=== PATIENT | female | born 1945 | race Two or more races ===

== ENCOUNTER 2017-06-10 13:01 | Observation (INO) | payer OTHER, MEDICARE ==
[~2017-06-10] VITALS: Ht 162.6 cm; Wt 48.0 kg
[~2017-06-10 13:01] MED LIST: NPR500T PO
[2017-06-10 13:10] VITALS: BP 135/87; PULSE 105; RESP 20; O2SAT 97
--- NOTE | 2017-06-10 13:22 | ED.REPORT ---
HPI-Extremity Problem Upper Date of Service Jun 10, 2017 ED Provider: Leo Santiago Patient is a 72 year old female with a hx of RA on prednisone who presents to the ED complaining of L elbow pain s/p a fall this morning. Pt dripped on uneven pavement and landed on her elbow. Associated symptoms include decreased ROM and swelling. She did not hit her head. She denies shoulder pain, wrist pain , headache, LOC, numbness, weakness, tingling, or any other symptoms. Her tetanus is up to date. Nursing Notes Stated Complaint: FALL/ARM INJURY Chief Complaint: Extremity Trauma Nursing Notes Reviewed: Yes Allergies: Coded Allergies: No Known Allergies (Unverified , 06/10/17) Scheduled PRN Naproxen (Naproxen) 500 Mg Tab 375 MG PO BID PRN PRN For Pain General Time Seen by MD: 13:21 Chief Complaint Elbow injury left Hx Obtained From: Patient Arrived By: Walk-in Onset Occurred: 5 - 8 hours ago Symptom Duration: Since onset Caused by: Fall on ground Location: : Elbow left Quality: Painful Severity: Current: Severe Severity: Maximum: Severe Pertinent Negative: Pt denies other symptoms Exacerbated by: Range of motion Pertinent Negative: Relieved by nothing Immunizations: Tetanus up to date Past Medical History Past Medical History rheumatoid arthritis Past Surgical History breast cancer at 40 years old Smoking History Former Smoker Social History Alcohol Use: Denies alcohol use Drug Use: Denies drug use Other Social History: Occupation lives by self, works at [employer] doing [employer] Ambulatory Status Independent Review of Systems Review of Systems Note: +decreased ROM -shoulder or wrist pain, tingling Musculoskeletal: Reports: Joint pain, Joint swelling Neurologic: Denies: Change LOC, Focal weakness, Headache, Numbness Complete sys rev & neg: except as marked. 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 (Moderate) Swelling and tenderness to the L elbow pain with ROM Wrist / Hand: Neurologic intact, Vascular intact multiple arthritis deformities Abdomen: Atraumatic, Soft, Non-tender Interpretation & Diagnostics X-Ray Interpretation Xray Interpretation: IMPRESSION: Intra-articular fracture of the olecranon, with associated elbow joint effusion. Dictated by: Harjit Armstrong M.D. on 06/10/2017 at 14:29 Approved by: Harjit Armstrong M.D. on 06/10/2017 at 14:31 X-Ray Ordered: Elbow left Interpretation / Wet Read by: Interpret - Radiologist Re-Eval/Medical Decision Re-Evaluation/Progress : Time of Eval: 14:32 Re-Evaluation/Progress Note: Discussed xray results and plan for admission. Patient understands and agrees with plan. All questions addressed at this time. Consultation #1: Referral / Consult Name: Demarcus Fernandez MD Consulted With: Orthopedic Call Returned at: 14:27 Health Promotion Coordinator: Will see patient, Agrees with eval, Agrees with plan Note: Discussed pt's case. Requests admit. NPO after midnight and order CT. Consultation #2: Referral / Consult Name: Nayeli Allen DO Consulted With: Hospitalist Call Returned at: 14:53 Health Promotion Coordinator: Will see patient, Agrees with eval, Agrees with plan, Accepts admit Note: Discussed pt's case with hospitalist's resident. Accepts admit. Counseled Regarding: Diagnosis, Lab results, Need for admission Discharge & Departure Impression: Primary Impression: Elbow fracture, left Encounter type: initial encounter Fracture type: closed Qualified Code: S42.402A - Unspecified fracture of lower end of left humerus, initial encounter for closed fracture Disposition: ADMITTED TO HOSPITAL Discharge Condition All VS Reviewed: Yes Condition: Stable Scribe Attestation Portions of this note were transcribed by Shen Rocha. I, Dr. Santiago personally performed the history, physical exam and medical decision-making; I reviewed and confirmed the accuracy of the information in the transcribed note. Signed by: Eric Moreno, 06/10/17 Leo Santiago MD Jun 10, 2017 13:22 SHEN ROCHA Jun 10, 2017 13:36
[2017-06-10] MEDS ORDERED: 0.9% Sodium Chloride 1,000 ML IV ONE (13:32)
[2017-06-10] MEDS ORDERED: Ketorolac 15 mg/mL Inj IVPUSH ONE (13:35)
[2017-06-10] MEDS ORDERED: HYDROmorphone 0.5 mg/0.5 mL iSecure Syringe IVPUSH PRN (13:35)
[2017-06-10] MEDS: Ondansetron 2 mg/mL 2 mL Inj IV PRN (13:56)
--- NOTE | 2017-06-10 14:32 | DRSVH ---
PROCEDURE: X-RAY LEFT ELBOW COMPLETE, MINIMUM THREE VIEWS ([id number]) INDICATIONS: 72 year-old female with left elbow trauma after fall onto concrete. TECHNIQUE: 3 views of the elbow were acquired. COMPARISON: None. FINDINGS: Bones: Intra-articular fracture of the olecranon is present, with 7 mm distraction of the fracture co mponents. Other bones appear intact. Soft tissues: There is elbow joint effusion, with anterior fat pad elevation. There is overlying mod erate soft tissue swelling as well. No suspicious soft tissue calcifications. IMPRESSION: Intra-articular fracture of the olecranon, with associated elbow joint effusion. Dictated by: Harjit Armstrong M.D. on 06/10/2017 at 14:29 Approved by: Harjit Armstrong M.D. on 06/10/2017 at 14:31
[2017-06-10] MEDS ORDERED: Alum-Mag Hydrox-Simeth 30 mL Suspension PO PRN (15:05)
[2017-06-10] MEDS ORDERED: Polyethylene Glycol (PEG) 17 Gm Powder PO PRN (15:05)
[2017-06-10] MEDS ORDERED: Ondansetron 2 mg/mL 2 mL Inj IVPUSH PRN (15:05)
[2017-06-10 15:31] LABS: BASOPHILS % (AUTO) 0.4 % (0-3); EOSINOPHILS % (AUTO) 0.4 % (0-5); MONOCYTES % (AUTO) 3.7 % (4-12); Mean Corpuscular Hemoglobin 31.4 pg (27.0-35.0); Mean Corpuscular Volume 94.5 fL (81-100); NEUTROPHILS % (AUTO) 80.9 % (40-74); Platelet Count 231 bil/L (150-400)
[2017-06-10 15:53] LABS: Magnesium 1.7 mg/dL (1.6-2.6)
[2017-06-10] MEDS ORDERED: HYDROmorphone 0.5 mg/0.5 mL iSecure Syringe IVPUSH ONE (16:00)
[2017-06-10] MEDS ORDERED: PRD5T PO (16:15)
[2017-06-10] MEDS ORDERED: LEFL20TA18 PO (16:20)
[2017-06-10] MEDS ORDERED: HYDROmorphone 0.5 mg/0.5 mL iSecure Syringe IVPUSH SCH (16:30)
[2017-06-10 16:36] VITALS: BP 149/87; PULSE 83; RESP 19; O2SAT 99
--- NOTE | 2017-06-10 16:39 | PCM.HPMED ---
Subjective Date of Service Jun 10, 2017 Primary Provider: Admitting Physician: Primary Care Physician: Lorenzo Attending Physician: Admit Status: From the Emergency Department, Full Admit, Admit to Red Team Chief Complaint: Left elbow pain after ground-level fall. . History of Present Illness: Atiya Lee is a 72-year-old female with a past medical history significant for rheumatoid arthritis and right breast cancer in remission status post lumpectomy, lymphadenectomy, and radiation therapy who presented to [facility] emergency Department after mechanical ground-level fall complaining of left elbow pain. The patient reports that she was on her way to [facility] when she fell and tripped over a lip in the sidewalk and landed on her left elbow. She reports significant pain after her fall. She rates her pain a +8 out of 10 in severity. She denies headache, cough, chest pain, shortness of breath, abdominal pain, nausea, vomiting, fever, chills, dysuria, constipation or diarrhea. She has no other complaints. Vital signs in the ER: Temperature 36.5. Pulse 105. Respiratory rate 20. Blood pressure 135/87. Pulse ox 97% room air. She received hydromorphone IV 0.5 mg 1, 1 L of NS, ondansetron IV 4 mg 1, Toradol IV 15 mg 1, and acetaminophen 975 mg 1. No PCP. Review of Systems: A comprehensive review of systems was conducted with the patient and found to be negative except as above in the History of Present Illness. . Allergies Coded Allergies: No Known Allergies (Unverified , 06/10/17) Home Medications Leflunomide 20 mg daily. Prednisone 5 mg daily. . PMH 1. Rheumatoid arthritis on prednisone. 2. Right breast cancer status post lumpectomy, lymphadenectomy, and radiation. . Surgical History Right breast cancer in remission status post lumpectomy, lymphadenectomy, and radiation. . Family History Mother with breast cancer at the age of 64. Father who was murdered. . Social History Hx Alcohol Use: Yes (12 glasses of wine 1-2x/week) Hx Substance Use: No Hx Tobacco Use: Yes Smoking Status: Former Smoker (1 PPD 20+ years) Additional Information The patient is 1. She has 3 children, 2 sons and 1 daughter who are all healthy. She works at the [employer] 27 years. . Exam Vital Signs Vital Sign - Last Date Time Temp Pulse Resp B/P Pulse Ox O2 Delivery O2 Flow Rate FiO2 06/10/17 13:10 36.5 105 20 135/87 97 Room Air Exam General: Female lying in bed and in no acute distress, well-developed, well- nourished, appropriately interactive. HEENT: Normocephalic, atraumatic. External ears without defect. Pupils equal, round, and reactive to light. Anicteric sclerae, moist conjunctivae, and no lid lag. Oropharynx free of erythema and cobble stoning with moist mucosa. Neck: Supple with full range of motion. No lymphadenopathy or thyromegaly. Cardiovascular: Regular rate and rhythm without murmurs, rubs, or gallops appreciated Pulmonary: Clear to auscultation bilaterally without crackles, wheezes, or rhonchi. Normal respiratory effort with no use of accessory muscles. Abdomen: Soft, nontender, nondistended, bowel sounds present. No hepatosplenomegaly or masses appreciated. Extremities: No clubbing, cyanosis, or edema of bilateral lower extremities. Significant edema and mild erythema of left elbow. Left elbow held in flexion and adduction. Skin: Normal temperature, turgor, and texture; no rash, ulcers, or subcutaneous nodules appreciated. Neurological: Cranial nerves grossly intact. Normal muscle strength, tone, and bulk. Reflexes, coordination, and sensory function within normal limits. No known gait impairment. Psychiatric: Normal mood and affect. Alert and oriented to person, place, and time. . Lab and Diagnostics Labs Item Value Date Time Sodium Level 142 mEq/L 06/10/17 1520 Potassium Level 4.1 mEq/L 06/10/17 1520 Chloride Level 106 mEq/L 06/10/17 1520 Carbon Dioxide Level 22 mmol/L 06/10/17 1520 Blood Urea Nitrogen 12 mg/dL 06/10/17 1520 Creatinine 0.58 mg/dL 06/10/17 1520 Estimat Glomerular Filtration Rate 146 mL/min 06/10/17 1520 Glucose Level 104 mg/dL H 06/10/17 1520 Calcium Level 8.6 mg/dL 06/10/17 1520 Magnesium Level 1.7 mg/dL 06/10/17 1520 Total Bilirubin 0.4 mg/dL 06/10/17 1520 Aspartate Amino Transf (AST/SGOT) 19 U/L 06/10/17 1520 Alanine Aminotransferase (ALT/SGPT) 11 U/L 06/10/17 1520 Alkaline Phosphatase 53 U/L 06/10/17 1520 Total Protein 6.2 g/dL L 06/10/17 1520 Albumin 3.6 g/dL 06/10/17 1520 Item Value Date Time White Blood Count 5.6 th/mm3 06/10/17 1520 Red Blood Count 4.01 mil/mm3 06/10/17 1520 Hemoglobin 12.6 g/dL 06/10/17 1520 Hematocrit 37.9 % 06/10/17 1520 Mean Corpuscular Volume 94.5 fL 06/10/17 1520 Mean Corpuscular Hemoglobin 31.4 pg 06/10/17 1520 Mean Corpuscular Hemoglobin Concent 33.2 % 06/10/17 1520 Red Cell Distribution Width 12.7 % 06/10/17 1520 Platelet Count 231 ritesh/L 06/10/17 1520 Neutrophils (%) (Auto) 80.9 % H 06/10/17 1520 Lymphocytes (%) (Auto) 14.2 % 06/10/17 1520 Monocytes (%) (Auto) 3.7 % L 06/10/17 1520 Eosinophils (%) (Auto) 0.4 % 06/10/17 1520 Basophils (%) (Auto) 0.4 % 06/10/17 1520 X-Rays, CTs and MRIs X-RAY LEFT ELBOW COMPLETE, MINIMUM THREE VIEWS IMPRESSION: Intra-articular fracture of the olecranon, with associated elbow joint effusion. Dictated by: Harjit Armstrong M.D. on 06/10/2017 at 14:29 . Assessment & Plan Atiya Lee is a 72-year-old female with a past medical history significant for rheumatoid arthritis and right breast cancer in remission status post lumpectomy, lymphadenectomy, and radiation therapy who presented to [facility] emergency Department after mechanical ground-level fall complaining of left elbow pain. 1. Acute intra-articular fracture of the olecranon, present on admission. Active. - The patient presents with left elbow pain after mechanical ground-level fall. - Left elbow x-ray demonstrated intra-articular fracture of the olecranon with associated elbow joint effusion, as above. - Ordered preoperative EKG, pending. - Ordered physical therapy and occupational therapy evaluation. - Ordered Tylenol 975 every 6 hours and hydrocodone 5-325 mg every 4 hours as needed for pain. Ordered hydromorphone 0.5 mg every 2 hours as needed severe pain. - Dr. Demarcus Fernandez of orthopedic surgery has been consulted and will plan to see the patient today. Tentative plan is for surgery tomorrow, therefore, patient will be NPO after midnight. -patient was on prednisone 5mg daily only ,no need for perioperative stress dose Chronic problems: 2. Rheumatoid arthritis, present on admission. Stable. - Continue prednisone 5 mg daily and leflunomide 20 mg daily. -patient was on prednisone 5mg daily only ,no need for perioperative stress dose -patient states she had DEXA scan and no need for osteoporosis treatment per patient The patient is DNR/DNI but was placed Full Code for future surgery. PRN antiemetics: Zofran and Maalox. PRN bowel regimen: Senna and MiraLAX. PRN analgesics: Tylenol. Patient is admitted under inpatient status with expected length of stay greater than 2 midnights due to severity of presenting symptoms, risk of adverse event, and complexity of treatment plan. . Resuscitation Status: CPR: Attempt Resuscitation Nayeli Allen DO Jun 10, 2017 14:54 Matt Pritchard MD Jun 10, 2017 16:58
[2017-06-10] MEDS: HYDROcodone-APAP 5-325 mg Tablet PO PRN ×2 (17:42→21:58)
[2017-06-10 19:28] LABS: APPEARANCE,URINE CLEAR (CLEAR,HAZY); COLOR,URINE YELLOW (YELLOW); OCCULT BLOOD,URINE NEGATIVE (NEGATIVE)
[2017-06-10 19:29] LABS: UROBILINOGEN,URINE NORMAL (NORMAL)
[2017-06-10] MEDS: HYDROmorphone 0.5 mg/0.5 mL iSecure Syringe IVPUSH PRN (19:42)
[2017-06-10 20:31] VITALS: PULSE 81
[2017-06-10 20:50] VITALS: BP 115/71; PULSE 80; RESP 21; O2SAT 95
--- NOTE | 2017-06-10 21:05 | DRSVH ---
PROCEDURE: X-RAY CHEST ONE VIEW ([id number]) INDICATIONS: pre-op TECHNIQUE: One view of the chest was acquired. COMPARISON: None. FINDINGS: Surgical changes and devices: Bibasilar scarring or fibrosis otherwise the lungs are clear. Lungs and pleura: No pleural effusions or pneumothorax. Mediastinum: Mediastinal contours appear normal. Heart size is normal. Bones and chest wall: No suspicious bony lesions. Overlying soft tissues appear unremarkable. Righ t axillary postoperative change. IMPRESSION: No radiographic evidence of acute cardiopulmonary pathology. Dictated by: Jaswant Morrison M.D. on 06/10/2017 at 21:02 Approved by: Jaswant Morrison M.D. on 06/10/2017 at 21:03
--- NOTE | 2017-06-10 21:12 | CONS ---
[address] [address] CONSULTATION REPORT PATIENT: KORTNEY GONZALEZ : 1945 MR#: [id number] ADMIT: 06/10/2017 JOB ID: [id number] DATE OF SERVICE: ORTHOPEDIC IN HOUSE CONSULTATION CPT CODE 67767-33 06/10/2017 CHIEF COMPLAINT: A 72-year-old female with steroid-dependent rheumatoid arthritis. On her way to [facility], she tripped and fell over a lip in the sidewalk and landed on her left elbow. The patient was brought to the emergency department and admitted. There was no loss of consciousness. The patient is having moderate pain in that left elbow and it is better with immobilization or at least with the arm sling. PAST MEDICAL HISTORY: The patient is on prednisone 5 mg per day and leflunomide 20 mg a day. She has a prior medical history positive for the rheumatoid arthritis, on prednisone. She had right breast cancer, status post lumpectomy, lymphadenectomy, and radiation. The patient has chronic contracture of the right elbow. FAMILY HISTORY: Positive for breast cancer with her mother. SOCIAL HISTORY: The patient drinks 1-2 glasses of wine per week. She is a former smoker. Smoked one pack per day for 20 years. She is x2 and has three children. 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 REVIEW OF SYSTEMS: HEENT: No blurring of vision. No decreased hearing. Respiratory: No acute shortness of breath. Cardiovascular: No chest pain. GI: No nausea or vomiting. Musculoskeletal: Pain in the left elbow. The patient denies any numbness or tingling in the upper extremities with cervical motion. She does have some chronic muscle wasting in her hands from her chronic rheumatoid changes in the hands. PHYSICAL EXAMINATION: 162 pounds, 48 kg female. Temperature 36.5, pulse 105, respiration 20, blood pressure 135/87. The patient is resting comfortably. She has good cervical range of motion. Denies any numbness or tingling with neck range of motion. She has chronic contracture in the right elbow and is not able to fully extend the elbow. The left elbow, there are no abrasions. She has positive joint effusion, 2+ swelling. She has chronic deformity in the hands, particularly over the thumbs, with subluxation of the metacarpophalangeal joint. The patient also has chronic muscle wasting in the hands. LABORATORY TESTING: White count 5600, hemoglobin 12.6, hematocrit 37.9, platelet count 231,000. Sodium 142, potassium 4.1, chloride 106, CO2 22, BUN 12, creatinine 0.58. Glucose 104, random. Total protein low at 6.2. Liver function tests within normal limits. Urinalysis, 0-5 white cells and no bacteria seen. X-rays of the elbow show that she has a displaced olecranon fracture. Will order a chest x-ray to be complete. IMPRESSION: Displaced right olecranon fracture. PLAN: I will also order a CT scan of the elbow with 3D reconstruction to further delineate the fracture planes. The patient will also require stress dose steroids and she is currently on daily steroids. I have ordered an Anesthesia consult for further evaluation. The patient is not displaying any neurologic symptoms with cervical range of motion. I therefore opted not to order cervical films unless Anesthesia feels that they are indicated. I will plan for her to have preoperative Ancef as well as Anesthesia can order stress dose steroids for surgery and would probably give her 1-2 additional doses of stress dose steroids postoperatively depending on anesthesia recommendations The patient's surgery will be performed in the Trauma block tomorrow afternoon, and I suspect she will probably need to at least remain overnight for some IV antibiotics and for stress dose steroids and then see about discharge to home the following day. Depending on her living situation, patient may also need some help at home and that could be determined. CC: [facility] CC: Charles Hays
--- NOTE | 2017-06-10 21:20 | DRSVH ---
PROCEDURE: CT ELBOW LEFT W/O CONTRAST ([id number]) INDICATIONS: pre-op eval. Please do 3D reconstruction TECHNIQUE: Noncontrast 1-1.5 mm axial sections were acquired through the elbow joint, with coronal and sagittal reformats. COMPARISON: None. FINDINGS: Image quality: Excellent. Bones: Transverse intra-articular fracture through the olecranon with 1.9 CM proximal distraction of the proximal fragment. No further fractures. Soft tissues: Left elbow hemarthrosis. IMPRESSION: Intra-articular transverse olecranon fracture with associated left elbow hemarthrosis. Dictated by: Jaswant Morrison M.D. on 06/10/2017 at 21:14 Approved by: Jaswant Morrison M.D. on 06/10/2017 at 21:19
[2017-06-10] MEDS ORDERED: Lactated Ringer's 1,000 ML IV SCH (23:59)
[2017-06-11] VITALS (13 sets, daily range): BP systolic 126–157; BP diastolic 67–89; PULSE 66–93; RESP 11–22; O2SAT 96–99
[2017-06-11] MEDS: HYDROmorphone 0.5 mg/0.5 mL iSecure Syringe IVPUSH PRN ×2 (02:30→05:33)
[2017-06-11] MEDS ORDERED: CeFAZolin Inj 2 GM in IV Premix 1 EACH IV ONE (06:00)
[2017-06-11 07:35] LABS: BASOPHILS % (AUTO) 0.4 % (0-3); EOSINOPHILS % (AUTO) 2.7 % (0-5); MONOCYTES % (AUTO) 7.2 % (4-12); Mean Corpuscular Hemoglobin 31.4 pg (27.0-35.0); Mean Corpuscular Volume 95.6 fL (81-100); NEUTROPHILS % (AUTO) 66.1 % (40-74); Platelet Count 206 bil/L (150-400)
[2017-06-11] MEDS: predniSONE 5 mg Tablet PO SCH (08:17)
[2017-06-11] MEDS: LEFLUNOMIDE 20 MG TAB PO SCH (08:18)
[2017-06-11] MEDS: Ondansetron 2 mg/mL 2 mL Inj IV PRN (12:13)
[2017-06-11] MEDS: HYDROmorphone 1 mg/mL Inj IVPUSH PRN ×2 (12:15→14:15)
[2017-06-11] MEDS ORDERED: Lactated Ringer's 1,000 ML IV ONE (15:06)
[2017-06-11] MEDS ORDERED: Phenylephrine/NS 100 mCg/mL 10 mL Syringe IVPUSH ONE (15:45)
[2017-06-11] MEDS ORDERED: EPHEDrine/NS 5 mg/mL 5 mL Syringe ONE (15:45)
[2017-06-11] MEDS ORDERED: fentaNYL-PF 50 mCg/mL 2 mL Inj ONE (15:45)
[2017-06-11] MEDS ORDERED: Propofol 10,000 mCg/mL 20 mL Inj ONE (15:45)
[2017-06-11] MEDS ORDERED: Ondansetron 2 mg/mL 2 mL Inj ONE (15:45)
[2017-06-11] MEDS ORDERED: HYDROmorphone 1 mg/mL Inj ONE (15:45)
[2017-06-11] MEDS ORDERED: Lactated Ringer's 500 ML IV PRN (16:02)
[2017-06-11] MEDS ORDERED: Lactated Ringer's 1,000 ML IV SCH (16:02)
--- NOTE | 2017-06-11 16:02 | PCM.HPANE ---
Patient Data Surgeon Admitting Provider:Matt Pritchard MD Attending Provider:Matt Pritchard MD Primary Care Physician:Lorenzo Other Provider:Fam Amaya Anesthesia Reason for Visit Left Elbow Fx LEFT ELBOW FX Ht/WT & BMI Height (Feet): 5 Height (Inches): 4.00 Weight (Kilograms): 48.000 Body Mass Index 18.07 Allergies Coded Allergies: No Known Allergies (Unverified , 06/10/17) Past Anesthesia History Anesthesia History: Denies:: Abnormal Airway, Anesthesia Reactions, Difficult Intubation, Fam Anesthesia Reaction, Fam Malignant Hypertherm, Malignant Hyperthermia Diabetes History Hx Diabetes?: No MRSA MRSA: No Medications Reported Medications Leflunomide 20 Mg [id number] Mg PO DAILY #30 06/10/17 Prednisone (PredniSONE)5 Mg Tab5 Mg PO DAILY #90 06/10/17 Discontinued Scripts Naproxen 500 Mg [id number] Mg PO BID PRN For Pain #20 TABLET Prov:Abhinav Stephens DO 12/25/15 History History of ENT Problems?: Yes HEENT History: Positive for:: Glaucoma Denies:: Cataracts Dysphagia Sinus Problem Denture Type: Full- Upper Full- Lower Teeth Condition: Missing Teeth Hx of Heart Problems?: No Cardiovascular History: Denies:: AICD Abdominal Aortic Aneurism Atrial Fibrillation Cardiac Surgery Chest Pain Congestive Heart Failure Coronary Artery Disease Edema Heart Murmur Hypertension Irregular Heartbeat Pacemaker Peripheral Vascular Rheumatic Fever Thrombophlebitis Valvular Heart Disease Hx of Respiratory Problem?: No Respiratory History: Denies:: Asthma COPD Chest Surgery Cough Dyspnea Emphysema Hemoptysis Oxygen Administration Pneumonia Pulmonary Embolism Tuberculosis Use of C-PAP Machine Use of Inhalers / NEBS Hx Neurologic Problems?: No Hx of GI Problems?: No Hx of Problems?: No Genitourinary History: Denies:: HX of Hemodialysis Kidney Stones Urinary Tract Infection HX of Peritoneal Dialysis: No Female Hx: Denies:: Currently Endometriosis Pelvic Inflammatory Problems with Breasts? Skin History: Denies:: History Skin Disorders? Pressure Ulcers Hx Musculoskeletal Problems?: Yes Musculoskeletal History: Denies:: Back Injury Joint Replacement Musculoskeletal Trauma Hx of Psycho/Social Problems?: No Hx Surgeries?: No Hx Any Other Health Problems?: No Other History: Denies:: Cancer Hospitalization Thyroid Disease History Blood Transfusions: Positive for:: Accept Blood Products? Denies:: Blood Transfuse Reaction Blood Transfusions Hx Diabetes: No Hx Alcohol Use: NoHx Substance Use: No Smoking Status: Former Smoker (1 PPD 20+ years) Have You Smoked inLast 12 mo: No Stop/Bang Treated for Sleep Apnea?: No Do You Have a CPAP Machine?: No S-Snoring: Do You Snore Loudly: No T-Tired: feel tired, fatigued: No O-Obsered: Observed not breath: No P-Blood Pressure: treated: No B- Body Mass Index > 35 kg/m2: No A- Age over 50: Yes N- Neck Large Circumference: No G- Gender Male: No LUCY Total Score: 0 Risk Assessment Category Category 1A: Patient has history of documented sleep apnea, and HAS NOT received any narcotic, sedative or anesthesia administration during this stay. Category 1B: Patient has history of documented sleep apnea, and HAS received any narcotic , sedative or anesthesia administration during this stay Category 2: Patient has SUSPECTED Obstructive Sleep Apnea, and HAS received any narcotic , sedative or anesthesia administration during this stay. Category 3: Patient has SUSPECTED Obstructive Sleep Apnea and HAS NOT received narcotic, sedative or anesthesia administration during this stay. Category 4: Outpatient in Procedural Areas with known sleep apnea or who screen positive for High Risk via the STOP/BANG questionnaire. Exam Exam Vital Signs Vital Signs Date Time Temp Pulse Resp B/P Pulse Ox O2 Delivery O2 Flow Rate FiO2 06/11/17 09:15 70 06/11/17 07:49 36.6 74 18 130/77 96 Room Air General Appearance: Alert, Oriented X3, Cooperative, No Acute Distress HEENT/AIRWAY: MP 2, Neck Movement (FROM), Mouth Opening (3 FBMO) Lungs: Clear to Auscultation, Normal Air Movement Heart: Exam Unremarkable, Regular Rate/Rhythm, No Murmurs/Rubs/Gallops Meds/Labs/Diagnostics Admission Meds Current Medications Hydromorphone HCl (Dilaudid Inj) 0.5 mg ONCE ONCE IVPUSH Last administered on 06/10/17 15:57; Start 06/10/17 at 16:00; Stop 06/10/17 at 16:01; Status DC Prednisone (Deltasone) 5 mg DAILYWM PO Last administered on 06/11/17 08:17; Start 06/11/17 at 08:00 Patient Own Medication 1 ea 1 ea DAILY PO Last administered on 06/11/17 08:18 ; Start 06/11/17 at 08:30 Lactated Ringer's (Lr) 1,000 ml @ 75 mls/hr [id number] IV Last administered on 00:31; Start 06/10/17 at 23:59 Labs Test 06/10/17 15:20 06/10/17 19:06/11/17 07:10 Hemoglobin A1c 5.4% (4.8-5.6) Magnesium Level 1.7mg/dL (1.6-2.6) Total Bilirubin 0.4mg/dL (0.0-1.2) Aspartate Amino Transf (AST/SGOT) 19U/L (0-50) Alanine Aminotransferase (ALT/SGPT) 11U/L (0-32) Alkaline Phosphatase 53U/L (25-165) Total Protein 6.2g/dL (6.4-8.4) Albumin 3.6g/dL (3.4-5.0) Hold [place] Top Tube Received (Received) Urine Color Yellow (YELLOW) Urine Appearance Clear (CLEAR,HAZY) Urine pH 6.0 (5.0-8.0) Urine Specific [place] 1.005 (1.003-1.035) Urine Protein Negativemg/dL (NEG,TRACE) Urine Glucose (UA) Negativemg/dL (NEGATIVE) Urine Ketones Negativemg/dL (NEGATIVE) Urine Occult Blood Negative (NEGATIVE) Urine Nitrite Negative (NEGATIVE) Urine Bilirubin Negative (NEGATIVE) Urine Urobilinogen Normalmg/dL (NORMAL) Urine Leukocyte Esterase Negative (NEGATIVE) Urine RBC 0-2/hpf (0-2) Urine WBC 0-5/hpf (0-5) Urine Epithelial Cells Few/hpf (NONE-MOD) Urine Crystals None seen (NONE SEEN) Urine Bacteria None/hpf (NONE-FEW) Urine Hyaline Casts None/lpf (NONE) Urine Granular Casts None seen (NONE SEEN) Urine Waxy Casts None seen (NONE SEEN) Urine Red Blood Cell Casts None seen (NONE SEEN) Urine White Blood Cell Casts None seen (NONE SEEN) Urine Mucus None seen (None Seen) Urine Trichomonas None seen (NONE SEEN) Urine Yeast None (NONE SEEN) Urinalysis Comment None Urine Culture Reflexed Not indicated White Blood Count 4.8th/mm3 (3.8-10.1) Red Blood Count 3.66mil/mm3 (3.90-5.20) Hemoglobin 11.5g/dL (12.0-15.6) Hematocrit 35.0% (35.0-46.0) Mean Corpuscular Volume 95.6fL (81-100) Mean Corpuscular Hemoglobin 31.4pg (27.0-35.0) Mean Corpuscular Hemoglobin Concent 32.9% (32.0-37.0) Red Cell Distribution Width 13.1% (12.3-15.4) Platelet Count 206bil/L (150-400) Neutrophils (%) (Auto) 66.1% (40-74) Lymphocytes (%) (Auto) 23.6% (14-46) Monocytes (%) (Auto) 7.2% (4-12) Eosinophils (%) (Auto) 2.7% (0-5) Basophils (%) (Auto) 0.4% (0-3) Sodium Level 139mEq/L (134-144) Potassium Level 4.1mEq/L (3.5-5.2) Chloride Level 103mEq/L (97-108) Carbon Dioxide Level 24mmol/L (18-29) Blood Urea Nitrogen 11mg/dL (8-27) Creatinine 0.63mg/dL (0.57-1.00) Estimat Glomerular Filtration Rate 132mL/min (>59) Glucose Level 91mg/dL (60-99) Calcium Level 8.2mg/dL (8.5-10.1) Plan Impression Patient chart reviewed, patient interviewed and anesthestic plan with risks, benefits, and alternatives discussed, and informed consent obtained. NPO per Anesth. Guidelines: Yes ASA Physical Status: ASA3 Severe Disease (Severe rheumatoid arthritis) Anesthetic Plan: GA, Regional Block (Consented for possible rescue postoperative left arm block if the patient requests it. Anesthesia risks of bleeding, infection, permanent nerve damage, permanent shortness of breath discussed. AQA. Consent signed.) Bene/Risks/Altern/Consents: Yes HP Complete Prior to Induction: Yes Alexi Pool MD Jun 11, 2017 14:38
[2017-06-11] MEDS ORDERED: EPHEDrine Sulfate 50 mg/mL Inj IVPUSH PRN (16:05)
[2017-06-11] MEDS ORDERED: Atropine 0.4 mg/mL Inj IVPUSH PRN (16:05)
[2017-06-11] MEDS ORDERED: MetoCLOpramide 5 mg/mL 2 mL Inj IVPUSH PRN (16:05)
[2017-06-11] MEDS ORDERED: Ondansetron 2 mg/mL 2 mL Inj IVPUSH PRN ×2 (16:05→19:10)
[2017-06-11] MEDS ORDERED: Phenylephrine 10,000 mCg/mL Inj IVPUSH PRN (16:05)
[2017-06-11] MEDS ORDERED: fentaNYL-PF 50 mCg/mL 2 mL Inj IVPUSH PRN (16:05)
[2017-06-11] MEDS ORDERED: Labetalol 5 mg/mL 20 mL Inj IV PRN (16:05)
[2017-06-11] MEDS ORDERED: HYDROmorphone 1 mg/mL Inj IVPUSH PRN (16:05)
--- NOTE | 2017-06-11 16:21 | PCM.PNMED ---
Subjective Date of Service Jun 11, 2017 Subjective Pain controlled. Awaiting surgery Exam Vital Signs Vital Sign - Last Date Time Temp Pulse Resp B/P Pulse Ox O2 Delivery O2 Flow Rate FiO2 06/11/17 09:15 70 06/11/17 07:49 36.6 18 130/77 96 Room Air Intake and Output 06/10/17 06/10/17 06/11/17 Cumulative From/Thru 14:59 22:59 06:59 06/10/17 13:10 - 06/11/17 05:06 Intake Total 1000 ml 500 ml 283 ml 1783 ml Output Total 500 ml 500 ml Balance 1000 ml 0 ml 283 ml 1283 ml Intake Oral 500 ml 500 ml IV Total 1000 ml 283 ml 1283 ml Output Urine Total 500 ml 500 ml Exam General: Female lying in bed and in no acute distress, well-developed, well- nourished, appropriately interactive. HEENT: Normocephalic, atraumatic. External ears without defect. Pupils equal, round, and reactive to light. Anicteric sclerae, moist conjunctivae, and no lid lag. Oropharynx free of erythema and cobble stoning with moist mucosa. Neck: Supple with full range of motion. No lymphadenopathy or thyromegaly. Cardiovascular: Regular rate and rhythm without murmurs, rubs, or gallops appreciated Pulmonary: Clear to auscultation bilaterally without crackles, wheezes, or rhonchi. Normal respiratory effort with no use of accessory muscles. Abdomen: Soft, nontender, nondistended, bowel sounds present. No hepatosplenomegaly or masses appreciated. Extremities: No clubbing, cyanosis, or edema of bilateral lower extremities. Significant edema and mild erythema of left elbow. Left elbow held in flexion and adduction. Skin: Normal temperature, turgor, and texture; no rash, ulcers, or subcutaneous nodules appreciated. Neurological: Cranial nerves grossly intact. Normal muscle strength, tone, and bulk. Reflexes, coordination, and sensory function within normal limits. No known gait impairment. Psychiatric: Normal mood and affect. Alert and oriented to person, place, and time. . IVs and Medications Medications Reviewed: Medications were reviewed in detail Lab and Diagnostics Result Diagram: 06/11/17 0710 06/11/17 0710 X-Rays, CTs and MRIs X-RAY LEFT ELBOW COMPLETE, MINIMUM THREE VIEWS IMPRESSION: Intra-articular fracture of the olecranon, with associated elbow joint effusion. Dictated by: Harjit Armstrong M.D. on 06/10/2017 at 14:29 . Assessment & Plan Atiya Lee is a 72-year-old female with a past medical history significant for rheumatoid arthritis and right breast cancer in remission status post lumpectomy, lymphadenectomy, and radiation therapy who presented to [facility] emergency Department after mechanical ground-level fall complaining of left elbow pain. 1. Acute intra-articular fracture of the olecranon, present on admission. Active. - The patient presents with left elbow pain after mechanical ground-level fall. - Left elbow x-ray demonstrated intra-articular fracture of the olecranon with associated elbow joint effusion, as above. - Ordered preoperative EKG, unremarkable - Ordered Tylenol 975 every 6 hours and hydrocodone 5-325 mg every 4 hours as needed for pain. Ordered hydromorphone 0.5 mg every 2 hours as needed severe pain. - Dr. Demarcus Fernandez of orthopedic surgery has been consulted and will plan to do surgery today -patient was on prednisone 5mg daily only ,no need for perioperative stress dose Chronic problems: 2. Rheumatoid arthritis, present on admission. Stable. - Continue prednisone 5 mg daily and leflunomide 20 mg daily. -patient was on prednisone 5mg daily only ,no need for perioperative stress dose -patient states she had DEXA scan and no need for osteoporosis treatment per patient The patient is DNR/DNI but was placed Full Code for future surgery. PRN antiemetics: Zofran and Maalox. PRN bowel regimen: Senna and MiraLAX. PRN analgesics: Tylenol. Observation status Procedure note done until late today. Plan to discharge tomorrow VTE Mechanical Devices: Intermittant Pneumatic CD Resuscitation Status: CPR: Attempt Resuscitation Matt Pritchard MD Jun 11, 2017 16:21
[2017-06-11] MEDS ORDERED: Bupivacaine-MPF 0.25% 30 mL Inj INFILTRATE ONE (17:06)
[2017-06-11] MEDS ORDERED: Polyethylene Glycol (PEG) 17 Gm Powder PO PRN (19:10)
[2017-06-11] MEDS ORDERED: Magnesium Hydroxide 10 mL Oral Concentration PO PRN (19:10)
[2017-06-11] MEDS ORDERED: diphenhydrAMINE 25 mg Capsule PO PRN (19:10)
[2017-06-11] MEDS ORDERED: Sodium Biphos-Phos 133 mL Enema RECTAL PRN (19:10)
--- NOTE | 2017-06-11 19:31 | PCM.ANEP1 ---
Post Anesthesia PACU Phase 1 Assessment Vital Signs Vital Signs Date Time Temp Pulse Resp B/P Pulse Ox O2 Delivery O2 Flow Rate FiO2 06/11/17 19:10 84 12 136/76 98 Nasal Cannula 3 06/11/17 19:05 88 22 144/75 98 Nasal Cannula 3 06/11/17 19:00 87 11 157/78 99 Simple Mask 10 06/11/17 18:55 36.4 89 16 147/83 99 Simple Mask 15 Anesthetic Administered: GA Level of Alertness: Awake, talking ODOM's with Equal Strength: Yes Pain: Yes (PT STATES SHE HAS PAIN ON MOVEMENT OF ARM, left supraclavicular rescue block performed. given permission prior to surgery.) Pain Scale Score: 8 Nausea or Vomiting: Yes CV Function & Hydration Stable: Yes Airway Device: n/a Oxygen Delivery: Simple Mask Lungs: Clear to Auscultation, Normal Air Movement Dermatome Level: Full Sensation PACU Phase 2 Assessment Complications: No Follow up Care: N/A Patient Instructions Provided: N/A Alexi Pool MD Jun 11, 2017 19:31
[2017-06-11] MEDS ORDERED: CeFAZolin Inj 2 GM in Dextrose 5% 50 ML IV SCH (20:00)
--- NOTE | 2017-06-11 20:10 | OP ---
[address] [address] OPERATIVE REPORT PATIENT: KORTNEY GONZALEZ : 1945 MR#: [id number] ADMIT: 06/10/2017 JOB ID: [id number] DATE OF SURGERY: 06/11/2017 PREOPERATIVE DIAGNOSIS(ES): Left olecranon fracture. ICD 10 code S52.022A. POSTOPERATIVE DIAGNOSIS(ES): Left olecranon fracture. ICD 10 code S52.022A. PROCEDURE: Open reduction, internal fixation left olecranon fracture. CPT CODE 00103 IMPLANTS UTILIZED: Synthes proximal olecranon plate and screws. SURGEON: Demarcus Fernandez MD HYDROLOGY TEACHER: Jazzy Angel PA-C. Jazzy was an integral portion of the procedure to help with retraction and reduction, and placement of the plate and screws. ANESTHESIA: General. ESTIMATED BLOOD LOSS: 25 mL. DRAINS: None. COMPLICATIONS: None. COUNTS: Sponge and needle count correct. INDICATIONS: This 72-year-old female with rheumatoid arthritis fell on her left elbow, sustaining a left olecranon fracture with displacement. The patient is steroid dependent and she has soft bone. DESCRIPTION OF PROCEDURE: Under adequate general anesthesia, the patient was placed in the right lateral decubitus position. The right arm was prepped and draped in sterile fashion. After appropriate time-out was called, the arm was elevated, exsanguinated, and the tourniquet inflated to 250 mmHg. The arm was placed with the towel bump. A curvilinear incision was fashioned over the posterior aspect of the elbow taking it just laterally around the olecranon bursa. Care was taken to protect the surrounding neurovascular structures. The subcutaneous layers were incised. The interval between the extensor and flexor carpi ulnaris was identified. The blood within the bursa and in the joint was evacuated. The triceps tendon was split distally. This was in order to accommodate the proximal olecranon plate. The ends of the fracture were curetted of any clot. There were no loose bodies within the joint. The fracture was then subsequently reduced, held with bone clamps, and then temporarily transfixed with two K-wires. The proximal olecranon plate was then positioned on the ulna. It was decided that the plate that had the more steeper bend fit better on this particular patient. It was temporarily held with K-wires. A 3.5 mm screw was drilled and filled in the oblong hole in the shaft of the olecranon. Image intensification confirmed good position of that screw. Attention was next turned to the long screw proximally. This was drilled and initially filled with a nonlocking screw to compress the plate to the bone. Additional locking screws were placed proximally in the plate, as well as distally in the plate. It was noted that the one nonlocking screw proximally was slightly long once the bone was compressed and the decision was made to change this to a slightly shorter screw, and a locking screw in particular, due to the patient's osteoporotic bone. Image intensification confirmed good position of the screw length on AP and lateral views. Any K-wires that were present were removed. The wound was irrigated with saline. Tourniquet released. The interval between the flexor and extensor carpi ulnaris was reapproximated over the plate with interrupted sutures of 0-Vicryl. The triceps tendon was repaired with [id number] sutures, inverting the knot, with 1-0 Vicryl. The subcutaneous layers were closed with interrupted sutures of 2-0 Vicryl, as well as 3-0 Monocryl, and the skin was reapproximated with running subcuticular suture of 3-0 Monocryl. Mastisol and Steri-Strips were applied. Xeroform dressing was applied in a well-padded dressing as well as a well-padded long-arm posterior splint. The patient was taken to the recovery room in stable condition. Sponge and needle count correct. No complications. PLAN: The patient will receive some additional IV antibiotics tomorrow. She did receive stress dose steroids preoperatively. She was only on prednisone 5 mg daily. They may restart the prednisone 5 mg per day and no additional stress dose steroids are required. I anticipate the patient should be able to be discharged, if not tomorrow, but the following day. She will need to use an arm sling. She lives alone and is also going to need some home health. The patient is to be seen back in the office in two weeks. Monocryl sutures will need to be clipped flush with the skin at that time. The patient tolerated the procedure well. cc:[facility]- Orthopedics cc: Charles Hays
--- NOTE | 2017-06-11 20:13 | DRSVH ---
PROCEDURE: X-RAY LEFT ELBOW, TWO VIEWS ([id number]) INDICATIONS: POST-OP TECHNIQUE: 2 views of the elbow were acquired. COMPARISON: None. FINDINGS: Bones: ORIF of the olecranon has been performed. No suspicious bony lesions. Soft tissues: Postsurgical gas within the elbow joint is present. No suspicious soft tissue calcifica tions. IMPRESSION: ORIF of the olecranon. Dictated by: Sushma Toledo M.D. on 06/11/2017 at 20:11 Approved by: Sushma Toledo M.D. on 06/11/2017 at 20:11
[2017-06-11] MEDS: Lactated Ringer's 1,000 ML IV SCH (20:19)
[2017-06-11] MEDS: Senna-Docusate 8.6-50 mg Tablet PO SCH (21:05)
[2017-06-11] MEDS ORDERED: CeFAZolin Inj 2 GM in IV Premix 1 EACH IV SCH (23:11)
[2017-06-12 00:26] VITALS: BP 117/67; PULSE 80; RESP 18; O2SAT 100
[2017-06-12 04:07] VITALS: BP 153/88; PULSE 94; RESP 18; O2SAT 100
[2017-06-12] MEDS ORDERED: CeFAZolin Inj 2 GM in IV Premix 1 EACH IV ONE (05:45)
[2017-06-12 06:09] LABS: BASOPHILS % (AUTO) 0.1 % (0-3); EOSINOPHILS % (AUTO) 0.3 % (0-5); MONOCYTES % (AUTO) 7.4 % (4-12); Mean Corpuscular Hemoglobin 31.7 pg (27.0-35.0); Mean Corpuscular Volume 96.1 fL (81-100); NEUTROPHILS % (AUTO) 79.5 % (40-74); Platelet Count 196 bil/L (150-400)
[2017-06-12] MEDS: HYDROmorphone 1 mg/mL Inj IVPUSH PRN (07:25)
[2017-06-12] MEDS: Lactated Ringer's 1,000 ML IV SCH (09:20)
[2017-06-12] MEDS: Senna-Docusate 8.6-50 mg Tablet PO SCH (09:21)
[2017-06-12] MEDS: predniSONE 5 mg Tablet PO SCH (09:21)
[2017-06-12] MEDS: LEFLUNOMIDE 20 MG TAB PO SCH (09:21)
[2017-06-12 12:31] VITALS: BP 114/72; PULSE 55; RESP 18; O2SAT 95
[2017-06-12] MEDS ORDERED: SENN-133 PO (13:19)
[2017-06-12] MEDS ORDERED: OXYC-530 PO (13:19)
[2017-06-12] MEDS ORDERED: DOCU-41 PO (13:19)
--- NOTE | 2017-06-12 13:22 | PCM.DIMED ---
Discharge Instructions Date of Service Jun 12, 2017 Dates of Hospitalization Jun 10, 2017 at 15:44 Discharge Diagnosis Discharge Diagnosis Acute intra-articular fracture of the olecranon. S/p Open reduction, internal fixation left olecranon fracture 06/11/2017. Diet Discharge Diet: Low fat, Low Sodium, Heart Healthy Activity Discharge Activity: Other (As reccomended by Orthopedic surgeon ) Call your provider Call your provider for: Fever or Chills, Shortness of breath, Bleeding, Chest pain, Vomitting, Excessive diarrhea, Weakness (unilateral) Patient Instructions Patient Instructions Follow-up with primary care physician and orthopedic surgeon for further management of your medical problems. Follow-up with PCP in: Other (in 2-3 days after discharge ) Stephon Knox MD Jun 12, 2017 13:22
--- NOTE | 2017-06-12 13:25 | PCM.DC.MED ---
Discharge Summary Date of Service Jun 12, 2017 Dates of Hospitalization Date of Hospital Admission Jun 10, 2017 at 15:44 Date of Discharge: Jun 12, 2017 Providers: Admitting Physician: Matt Pritchard MD Primary Care Physician: Lorenzo Attending Physician: Stephon Knox MD Diagnosis at Time of Discharge Diagnosis at Time of Discharge Acute intra-articular fracture of the olecranon. S/p Open reduction, internal fixation left olecranon fracture 06/11/2017. Consultations Orthopedic surgery Procedures XRay, CTs & MRIs X-RAY LEFT ELBOW COMPLETE, MINIMUM THREE VIEWS IMPRESSION: Intra-articular fracture of the olecranon, with associated elbow joint effusion. Dictated by: Harjit Armstrong M.D. on 06/10/2017 at 14:29 . Hospital Course Atiya Lee is a 72-year-old female with a past medical history significant for rheumatoid arthritis and right breast cancer in remission status post lumpectomy, lymphadenectomy, and radiation therapy presented to [facility] emergency Department after mechanical ground-level fall complaining of left elbow pain. Patient was diagnosed with Acute intra- articular fracture of the olecranon. Patient underwent Open reduction, internal fixation left olecranon fracture 06/11/2017. Patient was seen and examined on the day of discharge. After patient improved she was discharged home with recommendation to follow up with her PCP for further management of her medical problems. Patient Condition @ Discharge: good Discharge Disposition: home Discharge Activity: resume regular activity, patient was advised to avoid heavy physical work or exertion Driving: Patient was strongly advised against driving when under influence of alcohol, pain meds or other medication that can cause sedation or decreased reaction. Patient was strongly advised that she must not drink, drive, operative heavy machinery or do anything that requires precise judgement or dexterity within 12 hours of taking the controlled medication that was prescribed to her . Patient was aware that opioids and benzodiasepines are very addictive medications and may cause psychological or physical addiction. Discharge Diet: regular diet, heart healthy, low fat, low salt, high fiber Information Provided to Patient: information about discharge medications Discharge Medications: I discussed with patient medication dosage, usage, goals of therapy, side effects, alternatives. During discharge patient was allert, oriented, able to make own informed decisions. We discussed possible severe side effects, adverse reactions, benefits, risks, alternatives of current and newly prescribed medications and diagnostic procedures. Patient verbalized understanding and agreed to current plan of care and discharge. TIME SPENT IN DISCHARGE ACTIVITY: greater then 30 minutes spent in discharge activity. 1. Discussed with patient re: discharge plan of care/treatment, and follow up care/services. 2. Patient agreed with discharge plan and further plan of care, all questions were answered/addressed, no further questions at the time of discharge. Exam Vital Signs (Last) Date Time Temp Pulse Resp B/P Pulse Ox O2 Delivery O2 Flow Rate FiO2 06/12/17 12:31 37.3 55 18 114/72 95 Room Air 06/12/17 04:07 3.00 Test 06/10/17 15:20 06/10/17 19:17 06/11/17 07:10 06/12/17 05:34 Hemoglobin A1c 5.4% (4.8-5.6) Magnesium Level 1.7mg/dL (1.6-2.6) Total Bilirubin 0.4mg/dL (0.0-1.2) Aspartate Amino Transf (AST/SGOT) 19U/L (0-50) Alanine Aminotransferase (ALT/SGPT) 11U/L (0-32) Alkaline Phosphatase 53U/L (25-165) Total Protein 6.2g/dL (6.4-8.4) Albumin 3.6g/dL (3.4-5.0) Hold [place] Top Tube Received (Received) Urine Color Yellow (YELLOW) Urine Appearance Clear (CLEAR,HAZY) Urine pH 6.0 (5.0-8.0) Urine Specific [place] 1.005 (1.003-1.035) Urine Protein Negativemg/dL (NEG,TRACE) Urine Glucose (UA) Negativemg/dL (NEGATIVE) Urine Ketones Negativemg/dL (NEGATIVE) Urine Occult Blood Negative (NEGATIVE) Urine Nitrite Negative (NEGATIVE) Urine Bilirubin Negative (NEGATIVE) Urine Urobilinogen Normalmg/dL (NORMAL) Urine Leukocyte Esterase Negative (NEGATIVE) Urine RBC 0-2/hpf (0-2) Urine WBC 0-5/hpf (0-5) Urine Epithelial Cells Few/hpf (NONE-MOD) Urine Crystals None seen (NONE SEEN) Urine Bacteria None/hpf (NONE-FEW) Urine Hyaline Casts None/lpf (NONE) Urine Granular Casts None seen (NONE SEEN) Urine Waxy Casts None seen (NONE SEEN) Urine Red Blood Cell Casts None seen (NONE SEEN) Urine White Blood Cell Casts None seen (NONE SEEN) Urine Mucus None seen (None Seen) Urine Trichomonas None seen (NONE SEEN) Urine Yeast None (NONE SEEN) Urinalysis Comment None Urine Culture Reflexed Not indicated Sodium Level 139mEq/L (134-144) Potassium Level 4.1mEq/L (3.5-5.2) Chloride Level 103mEq/L (97-108) Carbon Dioxide Level 24mmol/L (18-29) Blood Urea Nitrogen 11mg/dL (8-27) Creatinine 0.63mg/dL (0.57-1.00) Estimat Glomerular Filtration Rate 132mL/min (>59) Glucose Level 91mg/dL (60-99) Calcium Level 8.2mg/dL (8.5-10.1) White Blood Count 7.0th/mm3 (3.8-10.1) Red Blood Count 3.63mil/mm3 (3.90-5.20) Hemoglobin 11.5g/dL (12.0-15.6) Hematocrit 34.9% (35.0-46.0) Mean Corpuscular Volume 96.1fL (81-100) Mean Corpuscular Hemoglobin 31.7pg (27.0-35.0) Mean Corpuscular Hemoglobin Concent 33.0% (32.0-37.0) Red Cell Distribution Width 13.0% (12.3-15.4) Platelet Count 196bil/L (150-400) Neutrophils (%) (Auto) 79.5% (40-74) Lymphocytes (%) (Auto) 12.4% (14-46) Monocytes (%) (Auto) 7.4% (4-12) Eosinophils (%) (Auto) 0.3% (0-5) Basophils (%) (Auto) 0.1% (0-3) Discharge Medications Discharge Medications Docusate Sodium (Colace) 100 Mg Capsule 100 MG PO BID Prescribed by: PREETI ACUNA MD Leflunomide (Leflunomide) 20 Mg Tablet 20 MG PO DAILY (Reported) Prednisone (PredniSONE) 5 Mg Tab 5 MG PO DAILY (Reported) As needed Sennosides (Senna) 8.6 Mg Tablet 17.2 MG PO BID PRN PRN For Constipation Prescribed by: PREETI ACUNA MD oxyCODONE (oxyCODONE) 5 Mg Tablet 5 MG PO Q4H PRN PRN For Severe Pain Prescribed by: PREETI ACUNA MD Followup Plan Discharge Diet: Low fat, Low Sodium, Heart Healthy Discharge Activity: Other (As reccomended by Orthopedic surgeon ) Patient Instructions Follow-up with primary care physician and orthopedic surgeon for further management of your medical problems. Follow-up with PCP in: Other (in 2-3 days after discharge ) Stephon Knox MD Jun 12, 2017 13:25 196bil/L (150-400) Neutrophils (%) (Auto) 79.5% (40-74) Lymphocytes (%) (Auto) 12.4% (14-46) Monocytes (%) (Auto) 7.4% (4-12) Eosinophils (%) (Auto) 0.3% (0-5) Basophils (%) (Auto) 0.1% (0-3) Discharge Medications Discharge Medications Docusate Sodium (Colace) 100 Mg Capsule 100 MG PO BID Prescribed by: PREETI ACUNA MD Leflunomide (Leflunomide) 20 Mg Tablet 20 MG PO DAILY (Reported) Prednisone (PredniSONE) 5 Mg Tab 5 MG PO DAILY (Reported) As needed Sennosides (Senna) 8.6 Mg Tablet 17.2 MG PO BID PRN PRN For Constipation Prescribed by: PREETI ACUNA MD oxyCODONE (oxyCODONE) 5 Mg Tablet 5 MG PO Q4H PRN PRN For Severe Pain Prescribed by: PREETI ACUNA MD Followup Plan Discharge Diet: Low fat, Low Sodium, Heart Healthy Discharge Activity: Other (As reccomended by Orthopedic surgeon ) Patient Instructions Follow-up with primary care physician and orthopedic surgeon for further management of your medical problems. Follow-up with PCP in: Other (in 2-3 days after discharge ) Stephon Knox MD Jun 12, 2017 13:25
--- NOTE | 2017-06-12 15:42 | PCM.PNORTH ---
Subjective Date of Service: Jun 12, 2017 Visit Information: Reason for Visit Left Elbow Fx Surgery/Surgery Date Post-Op Day # Date of Admission: Jun 10, 2017 at 15:44 Hospital Day # Subjective Patient is status post day #1 left elbow olecranon ORIF. Patient states she is doing really well, pain is well controlled. She has help at home and did very well with physical therapy and would like to go home if possible. Postop General: No Complaints, No Shortness of Breath, No Chest Pain Objective Exam Objective Patient is alert and oriented 3. Answering questions appropriately. Patient is sitting up in the bed and not in acute distress today. Dressing is clean dry and intact, sling is intact, wearing a shoulder sling and splint properly. Patient able to wiggle fingers, capillary refill is less than 3 seconds. Vital Signs and I/O Vital Sign - Last Date Time Temp Pulse Resp B/P Pulse Ox O2 Delivery O2 Flow Rate FiO2 06/12/17 12:31 37.3 55 18 114/72 95 Room Air 06/12/17 04:07 3.00 Intake and Output 06/11/17 06/11/17 06/12/17 Cumulative From/Thru 15:00 23:00 07:00 06/10/17 13:10 - 06/12/17 06:43 Intake Total 300 ml 750 ml 821 ml 3654 ml Output Total 500 ml 1000 ml 650 ml 2650 ml Balance -200 ml -250 ml 171 ml 1004 ml Intake Oral 300 ml 0 ml 0 ml 800 ml IV Total 750 ml 821 ml 2854 ml Output Urine Total 500 ml 800 ml 650 ml 2450 ml Emesis 200 ml 200 ml # Voids 4 4 # Bowel Movements 0 0 0 0 Lab & Micro Results Laboratory Tests Test 06/12/17 05:34 White Blood Count 7.0th/mm3 (3.8-10.1) Red Blood Count 3.63mil/mm3 (3.90-5.20) Hemoglobin 11.5g/dL (12.0-15.6) Hematocrit 34.9% (35.0-46.0) Mean Corpuscular Volume 96.1fL (81-100) Mean Corpuscular Hemoglobin 31.7pg (27.0-35.0) Mean Corpuscular Hemoglobin Concent 33.0% (32.0-37.0) Red Cell Distribution Width 13.0% (12.3-15.4) Platelet Count 196bil/L (150-400) Neutrophils (%) (Auto) 79.5% (40-74) Lymphocytes (%) (Auto) 12.4% (14-46) Monocytes (%) (Auto) 7.4% (4-12) Eosinophils (%) (Auto) 0.3% (0-5) Basophils (%) (Auto) 0.1% (0-3) Result Diagram: 06/12/17 0534 06/11/17 0710 Assessment & Plan Impression Status post day #1 left olecranon ORIF. Patient doing very well, ready to go home. Problems: Plan Patient should keep the arm in a sling at all times. Keep the dressing and splint clean dry and intact for 2 weeks until seen in our office. No lifting, pulling with the left shoulder. We will see the patient back in [address] Demarcus Fernandez for suture removal , x-rays and postoperative appointment. Resuscitation Status: CPR: Attempt Resuscitation Rk Gregory PA-C Jun 12, 2017 15:42
--- NOTE | 2017-06-12 16:41 | DRSVH ---
PROCEDURE: X-RAY LEFT ELBOW, TWO VIEWS ([id number]) INDICATIONS: ORIF LEFT ELBOW TECHNIQUE: 3 views of the elbow were acquired. COMPARISON: [facility], CT, CT ELBOW LT WO CON, 06/10/2017, 21:00[facility], [facility]R [facility]BOW 2VW LT, 06/11/2017, 19:40. [facility], CR, XR ELBOW COMP MIN 3VW LT, 06/10, 13:57. FINDINGS: Bones: Improved alignment status post ORIF of mildly distracted olecranon process fracture. Fixation plate and screws present in expected position. Soft tissues: No elbow joint effusion. No suspicious soft tissue calcifications. IMPRESSION: Near-anatomic alignment status post ORIF of olecranon process fracture. Dictated by: Leonardo HARPER Interpreted: Lenore Colon MD on 06/12/2017 at 8:55 Approved by: Lenore Colon M.D. on 06/12/2017 at 16:39
== END 2017-06-12 16:25 | disposition home or self-care (01) ==
LOC: SED 13:01 → OSC 15:44
PROVIDERS: ADMIT Internal Medicine; ATTEND Internal Medicine
DX: S52.022A Displaced fracture of olecranon process without intraarticular extension of left ulna, initial encounter for closed fracture (principal); W01.0XXA Fall on same level from slipping, tripping and stumbling without subsequent striking against object, initial encounter; Y93.01 Activity, walking, marching and hiking; Y92.480 Sidewalk as the place of occurrence of the external cause; M06.9 Rheumatoid arthritis, unspecified; Z85.3 Personal history of malignant neoplasm of breast; Z92.3 Personal history of irradiation; Z87.891 Personal history of nicotine dependence; Z79.52 Long term (current) use of systemic steroids